=== PATIENT | male | born 1955 | race Asian ===

== ENCOUNTER 2017-12-12 17:32 | Emergency (ER) | payer SELFPAY ==
[~2017-12-12] VITALS: Ht 167.6 cm; Wt 73.6 kg
[2017-12-12] MEDS ORDERED: ACETAMINOPHEN 500 MG TABLET PO ONE (18:00)
[2017-12-12 18:25] VITALS: BP 140/84
== END 2017-12-12 18:27 | disposition home or self-care (01) ==
LOC: EMS 17:32
DX: S13.4XXA Sprain of ligaments of cervical spine, initial encounter (principal); V49.50XA Passenger injured in collision with unspecified motor vehicles in traffic accident, initial encounter; Y93.89 Activity, other specified; Y92.89 Other specified places as the place of occurrence of the external cause; Y99.8 Other external cause status
CPT/HCPCS: 99282